=== PATIENT | male | born 1970 | race Caucasian/White ===

== ENCOUNTER 2024-10-24 16:01 | Emergency (ER) | payer OTHER ==
[~2024-10-24] VITALS: Ht 172.7 cm; Wt 59.0 kg
[2024-10-24] MEDS: KETOROLAC TROMETHAMINE INJ 30 MG/ML VIAL IM ONE (17:00)
[2024-10-24] MEDS ORDERED: KETOROLAC TROMETHAMINE INJ 30 MG/ML VIAL ONE (18:02)
[2024-10-24] MEDS ORDERED: IBUP-1953 PO (18:05)
[2024-10-24 18:18] VITALS: BP 128/86; TEMP 97.9; O2SAT 99
== END 2024-10-24 18:19 | disposition home or self-care (01) ==
LOC: ER 16:08
DX: M54.50 Low back pain, unspecified (principal); J45.909 Unspecified asthma, uncomplicated; Z88.0 Allergy status to penicillin
CPT/HCPCS: 72128-TC; 72131-TC; J1885